=== PATIENT | female | born 1955 | race Caucasian/White ===

== ENCOUNTER → 2016-10-27 | Outpatient (CLI) | payer BC ==
[~2016-10-27] MED LIST: AMITRIPTYLINE10 MG PO; BACTROBAN OINT22 GM PO; CELEBREX200 MG PO; COUMADIN3 MG PO; CYMBALTA60 MG PO; HYDROXYCHLOROQ200 MG PO; LASIX20 MG PO; LORATADINE10 M1 PO; MACROBID100 M1 PO; METFORMIN500 MG PO; PREDNISONE10 MG PO; SINGULAIR10 MG PO; SPIRONOLACTONE25 MG PO; SYNTHROID0.125 MG PO; TRAMADOL HCL50 MG PO; VICODIN 500 MG-1 TAB PO
== END | disposition home or self-care (01) ==
LOC: LAB 19:15
DX: R19.7 Diarrhea, unspecified (principal)

== ENCOUNTER 2017-06-19 14:22 | Emergency (ER) | payer BC ==
[~2017-06-19] VITALS: Ht 157.4 cm; Wt 111.6 kg
[2017-06-19 14:47] LABS: BASO # 0.1 10*3/uL (0.0-0.1); BASO % 0.3 % (0.0-1.0); EOS # 0.2 10*3/uL (0.0-0.4); EOS % 1.4 % (1.0-4.0); HEMATOCRIT 43.4 % (37.0-47.0); HEMOGLOBIN 14.2 g/dl (12.0-16.0); LYMPH # 2.1 10*3/uL (1.3-4.4); MEAN CELL VOLUME 91.9 fl (81.0-99.0); MEAN CORPUSCULAR HGB 30.1 pg (27.0-31.0); MEAN CORPUSCULAR HGB CONC 32.7 g/dl (33.0-37.0); MEAN PLATELET VOLUME 9.6 fl (9.6-12.3); MONO # 0.9 10*3/uL (0.1-1.0); MONO % 6.2 % (3.0-9.0); NEUT # 11.3 10*3/uL (2.3-7.9); NEUT % 76.3 % (47.0-73.0); PLATELET COUNT AUTOMATED 334 10*3/uL (130-400); RED BLOOD COUNT 4.72 10*6/uL (4.10-5.10); RED CELL DISTRI WIDTH 13.6 % (0-14.5); WHITE BLOOD COUNT 14.8 10*3/uL (4.8-10.8)
[2017-06-19 14:54] LABS: INTERNATIONAL NORM RATIO 3.2 (2.0-3.5)
[2017-06-19 15:00] LABS: ALBUMIN 3.2 gm/dl (3.1-4.5); ALKALINE PHOSPHATASE 111 U/L (45-117); BUN 21 mg/dl (7-24); CHLORIDE 102 mmol/L (98-107); CREATININE 0.83 mg/dL (0.55-1.02); POTASSIUM 4.3 mmol/L (3.5-5.1); SGOT/AST 10 IU/L (3-35); SGPT/ALT 25 U/L (12-78); SODIUM 136 mmol/L (136-145); TOTAL PROTEIN 7.6 gm/dL (6.4-8.2)
[2017-06-19] MEDS ORDERED: KEFLEX500 M1 PO (15:39)
[2017-06-19 15:50] VITALS: BP 149/89
== END 2017-06-19 16:20 ==
LOC: ED 14:22
PROVIDERS: Nurse Practitioner Family
DX: S91.302A Unspecified open wound, left foot, initial encounter (principal); E11.9 Type 2 diabetes mellitus without complications; D68.51 Activated protein C resistance; Z98.890 Other specified postprocedural states; Z98.51 Tubal ligation status; Z79.899 Other long term (current) drug therapy; Z79.01 Long term (current) use of anticoagulants; Z88.2 Allergy status to sulfonamides; Z88.5 Allergy status to narcotic agent; Z88.8 Allergy status to other drugs, medicaments and biological substances; X58.XXXA Exposure to other specified factors, initial encounter; Y93.89 Activity, other specified; Y92.89 Other specified places as the place of occurrence of the external cause; Y99.9 Unspecified external cause status

== ENCOUNTER 2017-06-24 08:46 | Inpatient (IN) | payer BC ==
[~2017-06-24] VITALS: Ht 157.4 cm; Wt 111.6 kg
--- NOTE | ~2017-06-24 | CON ---
[place], [place] REPORT OF CONSULTATION NAME: MADHU JOYA UNIT #: [id number] ROOM: 405 DOCTOR: CALLUM MERRILL DPM BIRTHDATE: [birth year] DOS: 06/24/2017 SUBJECTIVE: This patient is seen today for evaluation of an ulcer on bottom of her left foot. She states she has always had a callus there and about a week or two ago she trimmed the callus off and it did start to bleed and sustained a wound. She states it was really red and swollen, so she went to the Emergency Room on June 19, was placed on Keflex and was discharged. She states over the weekend she was concerned because the redness and swelling had got a little better, but not significantly improved, so she came back to the Emergency Room and they admitted her for IV antibiotics and evaluation of the left foot. She is diabetic. 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 She denies fever, chills, nausea, vomiting or night sweats. Denies any chills at this time. PAST MEDICAL HISTORY: Positive for factor V deficiency, diabetes as well as some seasonal allergies, vitamin D deficiency, hypothyroidism. CURRENT MEDICATIONS: Include Aldactone, Singulair, Claritin, Cymbalta, Prilosec, Cytomel, Synthroid, Feosol, Elavil, Coumadin, prednisone, Humalog, Flovent, [place]. ALLERGIES: SULFA, ALLOPURINOL and CODEINE. OBJECTIVE: Upon lower extremity physical examination, DP pedal pulse is palpable. PT pedal pulse is minimally decreased. There are some chronic pigment changes noted bilaterally, consistent with venous insufficiency. The toes are warm. CFT is less than 2 seconds to all digits. Sensation is diminished in the forefoot bilaterally. The plantar left first metatarsal head has a small wound present measuring about 0.5 cm in length x about 0.1 cm in width. Upon probing with a Q-tip, there is a tract that goes down to bone. There is no purulent drainage or malodor expressed from the wound. There is some erythema localized to the first MPJ, but no increased temperature, again no expressible purulent drainage, no ascending cellulitis. The erythema is localized to the joint. IMAGING: Her x-ray showed destruction of the first metatarsal head, which appears not to be a fracture. It appears to be osseous breakdown secondary to possible infection, possibility of Charcot cannot be excluded. LABORATORY DATA: Her white blood cell count was 13,000 and her INR was 2.6. PT and PTT are elevated. She did not have any signs of a shift at this time and white blood cell count was 13,000. ASSESSMENT: Diabetes, diabetic ulcer to plantar left first metatarsal head, possible osteomyelitis, possible Charcot arthropathy of the joint. PLAN: Consult was performed. I discussed with the patient that she has an ulceration with possible infection and I discussed results of her x-rays. The patient ultimately needs that area opened up, flushed out and needs a biopsy and culture of the bone to see if it truly is osteomyelitis. This was all discussed with the patient. I will speak with Dr. Segovia about giving her vitamin K to [place], [place] REPORT OF CONSULTATION NAME: MADHU JOYA UNIT #: [id number] ROOM: 405 DOCTOR: CALLUM MERRILL DPM BIRTHDATE: [birth year] reduce her INR and PT, PTT, hopefully do the surgery tomorrow. Consult Infectious Disease. Order sed rate and C-reactive protein, just basically a local dressing to the area for now and reevaluate the patient tomorrow, possible surgery tomorrow as long as her bleeding times come down. This was all discussed with the patient. I discussed the procedure with the patient ____ needs a biopsy of that bone, needs the area flushed out and addressed. She is agreeable to this. I will speak with Dr. Segovia. Thank you for the opportunity to take part in care of this patient. CALLUM MERRILL DPM CM:CONSTR:REPORT OF CONSULTATION [id number] 06/24/17 2068 interface
--- NOTE | ~2017-06-24 | PR ---
[place], [place] PROGRESS NOTE NAME: MADHU JOYA UNIT #: [id number] ROOM: 405 DOCTOR: ADDIS SCALES DPM BIRTHDATE: [birth year] DOS: 06/27/2017 SUBJECTIVE: The patient presents 2 days postop incision and drainage with bone biopsy of the left foot. The patient is resting comfortably in bed without pain. OBJECTIVE: Upon removal of the dressing and packing, there is decreased erythema, decreased edema, mild serous drainage still noted. No definitive abscess identified. LABORATORY DATA: The patient's bone biopsy is consistent with chronic osteomyelitis. The patient still had a WBC of 14.8. ASSESSMENT: Post incision and drainage of abscess with bone biopsy and osteomyelitis, left foot. PLAN: Ordered wound VAC to be changed every 3 days, continuous at 125 mmHg. Continue antibiotics per Infectious Disease. Discussed with the patient. She needs to maintain vigilance and nonweightbearing, that she may still need further bone removed from the foot and she may require additional surgical procedures. Discussed with the patient long-term treatment options. The patient is to continue offloading of the foot as directed. The patient understood this. Discussed the case with Dr. Brown to check the patient tomorrow. ADDIS SCALES DPM CM:LEYLA [id number] ADDIS SCALES DPM 06/27/17 1631 interface
--- NOTE | ~2017-06-24 | PR ---
[place], [place] PROGRESS NOTE NAME: [id number] UNIT #: [id number] ROOM: 405 DOCTOR: CALLUM MERRILL DPM BIRTHDATE: [birth year] DOS: 06/28/2017 SUBJECTIVE: This patient is seen for followup of I and D, bone biopsy of left foot. She has osteomyelitis noted in the left foot. She states she is feeling well. Denies fever, chills, nausea, vomiting or night sweats. She is postop day 3 at this time. She does have a PICC line. OBJECTIVE: ____ the wound VAC. The plantar wound is clean. There is still some mild edema about the left first MPJ, but no erythema or increased temperature. No purulent drainage or malodor. Still a fairly deep deficit, plantar left foot. The bone is palpable. No abscess is seen. Again significant reduction in erythema at this time. ASSESSMENT: Chronic osteomyelitis of left foot, status post incision and drainage, bone biopsy. PLAN: Recommend packing and a dressing to the area. She is going to be discharged today. She will follow up tomorrow with Dr. Lopez in the office. They are in the process of getting her a new wound VAC as an outpatient. Limit weightbearing, IV antibiotics per Infectious Disease and follow up tomorrow in the office to be evaluated. CALLUM MERRILL DPM CM:PNTRANS [id number] CALLUM MERRILL DPM 06/28/17 1348 interface
--- NOTE | ~2017-06-24 | O ---
[place], [place] OPERATIVE NOTE NAME: MADHU JOYA UNIT #: [id number] ROOM: 405 DOCTOR: ADDIS SCALES DPM BIRTHDATE: [birth year] DOS: 06/25/2017 PREOPERATIVE DIAGNOSIS: Abscess, first left metatarsophalangeal joint with possible osteomyelitis. POSTOPERATIVE DIAGNOSIS: Abscess, first left metatarsophalangeal joint with possible osteomyelitis, pending pathology. PROCEDURE: Incision and drainage, left foot with bone biopsy, first left metatarsal. ESTIMATED BLOOD LOSS: 15 mL. SPECIMEN: Bone, first left metatarsal . PACKING: Half-inch plain packing. GASOLINE ATTENDANT: None. SURGEON: Addis Scales DPM ANESTHESIA: LMAC. PROCEDURE IN DETAIL: The patient was brought to the operating room and placed on the operating table in supine position, anesthesia administered per Anesthesia Department. A local block consisting of 10 mL of 0.5% Marcaine plain was utilized at the first left MPJ. The area was prepped and draped in usual aseptic manner. An ulceration with fluctuance and purulent drainage was noted to the plantar first left MPJ. The ulceration was probed with a [place] elevator was noted to track proximally. A 15 blade was utilized to open the tract through and through subcutaneous tissue level down to the level of the first metatarsal approximately 6 cm proximal. The incision was lengthened and additional tracking distally approximately 1 cm. All necrotic nonviable tissue was excised. Purulent drainage noted. Wound was cultured and sent for aerobic, anaerobic, acid fast, fungal cultures along with Gram stain. At this time, a Jamshidi was utilized to obtain samples of bone of the first left metatarsal head. Bone samples were also sent for cultures and separately for pathology to rule out osteomyelitis. The area was copiously flushed with pulse power irrigation with sterile saline and at this time, the area was packed with half-inch plain packing and a sterile compressed dressing consisting of wet-to-dry dressing with 4 x 4's, ABD pads, Kerlix and Stanley bandage. Capillary refill time was normal to all digits of the left foot after completion of the procedure. The patient tolerated the procedures and anesthesia well and left the OR with vital signs stable and neurovascular status intact. The patient will resume previous orders at the nursing unit, hold anticoagulant therapy until at least tomorrow and resume per Internal Medicine orders for elevation of the left foot with ice behind the left knee 30 minutes per hour, orders for crutches and surgical shoe and PT consult for crutch training when the patient is able to reinforce dressing as needed and the patient will be seen tomorrow for followup with Dr. Drake, for possible wound VAC placement. [place], [place] OPERATIVE NOTE NAME: MADHU JOYA UNIT #: [id number] ROOM: 405 DOCTOR: ADDIS SCALES DPM BIRTHDATE: [birth year] ADDIS SCALES DPM CM:OPRECORD:OPERATIVE NOTE 1215 01 ADDIS SCALES DPM 06/25/172200 interface
[~2017-06-24 08:46] MED LIST changes: -CO Q10100 MG PO; -COUMADIN2 MG PO; -FLONASE ALLERG9.9 ML NAS; -IRON325 M1 PO; -LIOTHYRONINE SO5 MCG PO; -PREDNISONE5 MG PO; -PRILOSEC20 M1 PO; -QVAR8.7 G1 INH; -VITAMIN D32000 UNIT PO
[2017-06-24 08:56] VITALS: BP 177/81
[2017-06-24 09:31] LABS: BASO # 0.1 10*3/uL (0.0-0.1); BASO % 0.5 % (0.0-1.0); EOS # 0.2 10*3/uL (0.0-0.4); EOS % 1.8 % (1.0-4.0); HEMATOCRIT 41.6 % (37.0-47.0); HEMOGLOBIN 13.5 g/dl (12.0-16.0); LYMPH # 2.2 10*3/uL (1.3-4.4); LYMPH % 16.7 % (27.0-41.0); MEAN CELL VOLUME 92.9 fl (81.0-99.0); MEAN CORPUSCULAR HGB 30.1 pg (27.0-31.0); MEAN CORPUSCULAR HGB CONC 32.5 g/dl (33.0-37.0); MONO # 0.9 10*3/uL (0.1-1.0); MONO % 6.9 % (3.0-9.0); NEUT # 9.4 10*3/uL (2.3-7.9); NEUT % 72.6 % (47.0-73.0); PLATELET COUNT AUTOMATED 290 10*3/uL (130-400); RED BLOOD COUNT 4.48 10*6/uL (4.10-5.10); RED CELL DISTRI WIDTH 13.7 % (0-14.5)
[2017-06-24 09:40] LABS: ACT PARTIAL THROMBO TIME 34.8 SECONDS (20.8-31.5); INTERNATIONAL NORM RATIO 2.6 (2.0-3.5)
[2017-06-24 09:46] LABS: ALBUMIN 2.9 gm/dl (3.1-4.5); ALKALINE PHOSPHATASE 99 U/L (45-117); BUN 13 mg/dl (7-24); CHLORIDE 103 mmol/L (98-107); CREATININE 0.78 mg/dL (0.55-1.02); POTASSIUM 3.7 mmol/L (3.5-5.1); SGOT/AST 11 IU/L (3-35); SGPT/ALT 26 U/L (12-78); SODIUM 139 mmol/L (136-145); TOTAL PROTEIN 7.1 gm/dL (6.4-8.2)
[2017-06-24 09:56] VITALS: BP 164/65
[2017-06-24] MEDS ORDERED: LIOTHYRONINE SO5 MCG PO (10:18)
[2017-06-24] MEDS ORDERED: PRILOSEC20 M1 PO (10:21)
[2017-06-24] MEDS ORDERED: IRON325 M1 PO (10:21)
[2017-06-24] MEDS ORDERED: CO Q10100 MG PO (10:22)
[2017-06-24] MEDS ORDERED: VITAMIN D32000 UNIT PO (10:22)
[2017-06-24] MEDS ORDERED: PREDNISONE5 MG PO (10:23)
[2017-06-24] MEDS ORDERED: COUMADIN2 MG PO (10:25)
[2017-06-24 10:27] VITALS: BP 160/75
[2017-06-24] MEDS ORDERED: QVAR8.7 G1 INH (10:41)
[2017-06-24] MEDS ORDERED: FLONASE ALLERG9.9 ML NAS (10:42)
[2017-06-24 12:00] VITALS: BP 150/78
[2017-06-24 16:00] VITALS: BP 139/70
[2017-06-24 20:00] VITALS: BP 143/77
[2017-06-25] VITALS (8 sets, daily range): BP systolic 128–176; BP diastolic 48–76
[2017-06-25 07:04] LABS: BASO % 0.3 % (0.0-1.0); EOS # 0.1 10*3/uL (0.0-0.4); EOS % 0.5 % (1.0-4.0); HEMATOCRIT 41.8 % (37.0-47.0); HEMOGLOBIN 13.6 g/dl (12.0-16.0); LYMPH # 2.5 10*3/uL (1.3-4.4); LYMPH % 20.3 % (27.0-41.0); MEAN CELL VOLUME 92.3 fl (81.0-99.0); MEAN CORPUSCULAR HGB CONC 32.5 g/dl (33.0-37.0); MEAN PLATELET VOLUME 10.2 fl (9.6-12.3); MONO # 0.9 10*3/uL (0.1-1.0); MONO % 7.4 % (3.0-9.0); NEUT # 8.5 10*3/uL (2.3-7.9); NEUT % 69.7 % (47.0-73.0); PLATELET COUNT AUTOMATED 326 10*3/uL (130-400); RED BLOOD COUNT 4.53 10*6/uL (4.10-5.10); RED CELL DISTRI WIDTH 13.6 % (0-14.5); WHITE BLOOD COUNT 12.2 10*3/uL (4.8-10.8)
[2017-06-25 07:34] LABS: BUN 16 mg/dl (7-24); CHLORIDE 102 mmol/L (98-107); CHOLESTEROL 197 mg/dL (<200); CREATININE 0.75 mg/dL (0.55-1.02); HDL CHOLESTEROL 54 mg/dl (40-60); LDL CHOLESTEROL 117 mg/dL (9-159); PHOSPHOROUS 3.2 mg/dL (2.5-4.9); POTASSIUM 3.8 mmol/L (3.5-5.1); SODIUM 140 mmol/L (136-145); TRIGLYCERIDES 130 mg/dl (<150); VLDL CHOLESTEROL 26 mg/dL (6-40)
[2017-06-25 07:38] LABS: ACT PARTIAL THROMBO TIME 26.2 SECONDS (20.8-31.5); INTERNATIONAL NORM RATIO 1.5 (2.0-3.5)
[2017-06-25 07:41] LABS: THYROID STIM HORMONE (HS) 0.059 uIU/ml (0.358-4.75)
[2017-06-25 08:06] LABS: VITAMIN D, 25-HYDROXY 54.8 ng/mL (30-100)
[2017-06-26] VITALS: BP 127/59
[2017-06-26 05:56] LABS: BUN 17 mg/dl (7-24); CHLORIDE 106 mmol/L (98-107); CREATININE 0.75 mg/dL (0.55-1.02); SODIUM 141 mmol/L (136-145)
[2017-06-26 06:29] LABS: INTERNATIONAL NORM RATIO 1.1 (2.0-3.5)
[2017-06-26 06:48] LABS: BASO # 0.1 10*3/uL (0.0-0.1); BASO % 0.4 % (0.0-1.0); EOS # 0.2 10*3/uL (0.0-0.4); EOS % 1.8 % (1.0-4.0); HEMOGLOBIN 12.9 g/dl (12.0-16.0); MEAN CELL VOLUME 95.1 fl (81.0-99.0); MEAN CORPUSCULAR HGB 29.9 pg (27.0-31.0); MEAN CORPUSCULAR HGB CONC 31.5 g/dl (33.0-37.0); MEAN PLATELET VOLUME 10.2 fl (9.6-12.3); MONO # 0.9 10*3/uL (0.1-1.0); MONO % 7.3 % (3.0-9.0); NEUT # 8.6 10*3/uL (2.3-7.9); NEUT % 71.8 % (47.0-73.0); PLATELET COUNT AUTOMATED 296 10*3/uL (130-400); RED BLOOD COUNT 4.31 10*6/uL (4.10-5.10); RED CELL DISTRI WIDTH 13.8 % (0-14.5)
[2017-06-26 08:00] VITALS: BP 155/71; BP 174/87
[2017-06-26 16:00] VITALS: BP 134/61
[2017-06-26 16:09] LABS: ACID FAST SPEC PROCESSING Tissue Grinding (.)
[2017-06-26 20:00] VITALS: BP 146/71
[2017-06-27 00:02] VITALS: BP 153/70
[2017-06-27 05:56] LABS: BUN 16 mg/dl (7-24); CHLORIDE 103 mmol/L (98-107); CREATININE 0.64 mg/dL (0.55-1.02); POTASSIUM 3.6 mmol/L (3.5-5.1); SODIUM 140 mmol/L (136-145)
[2017-06-27 05:58] LABS: VANCOMYCIN TROUGH 11.2 ug/mL (10-20)
[2017-06-27 06:02] LABS: BASO # 0.1 10*3/uL (0.0-0.1); BASO % 0.3 % (0.0-1.0); EOS # 0.1 10*3/uL (0.0-0.4); EOS % 0.7 % (1.0-4.0); HEMATOCRIT 40.1 % (37.0-47.0); HEMOGLOBIN 13.1 g/dl (12.0-16.0); LYMPH # 2.6 10*3/uL (1.3-4.4); LYMPH % 17.7 % (27.0-41.0); MEAN CELL VOLUME 92.6 fl (81.0-99.0); MEAN CORPUSCULAR HGB 30.3 pg (27.0-31.0); MEAN CORPUSCULAR HGB CONC 32.7 g/dl (33.0-37.0); MONO # 1.1 10*3/uL (0.1-1.0); MONO % 7.6 % (3.0-9.0); NEUT # 10.6 10*3/uL (2.3-7.9); NEUT % 71.8 % (47.0-73.0); PLATELET COUNT AUTOMATED 308 10*3/uL (130-400); RED BLOOD COUNT 4.33 10*6/uL (4.10-5.10); RED CELL DISTRI WIDTH 13.6 % (0-14.5); WHITE BLOOD COUNT 14.8 10*3/uL (4.8-10.8)
[2017-06-27 08:00] VITALS: BP 131/65
[2017-06-27 12:00] VITALS: BP 159/77
[2017-06-27 16:00] VITALS: BP 138/56
[2017-06-27 20:00] VITALS: BP 145/68
[2017-06-28] VITALS: BP 128/55
[2017-06-28 06:56] LABS: BASO # 0.1 10*3/uL (0.0-0.1); BASO % 0.3 % (0.0-1.0); EOS # 0.1 10*3/uL (0.0-0.4); EOS % 0.6 % (1.0-4.0); HEMATOCRIT 41.1 % (37.0-47.0); HEMOGLOBIN 13.1 g/dl (12.0-16.0); LYMPH # 2.9 10*3/uL (1.3-4.4); LYMPH % 19.4 % (27.0-41.0); MEAN CELL VOLUME 92.8 fl (81.0-99.0); MEAN CORPUSCULAR HGB 29.6 pg (27.0-31.0); MEAN CORPUSCULAR HGB CONC 31.9 g/dl (33.0-37.0); MEAN PLATELET VOLUME 9.9 fl (9.6-12.3); MONO # 1.2 10*3/uL (0.1-1.0); NEUT # 10.2 10*3/uL (2.3-7.9); NEUT % 69.7 % (47.0-73.0); PLATELET COUNT AUTOMATED 269 10*3/uL (130-400); RED BLOOD COUNT 4.43 10*6/uL (4.10-5.10); RED CELL DISTRI WIDTH 13.6 % (0-14.5); WHITE BLOOD COUNT 14.7 10*3/uL (4.8-10.8)
[2017-06-28 07:32] LABS: BUN 17 mg/dl (7-24); CHLORIDE 103 mmol/L (98-107); CREATININE 0.61 mg/dL (0.55-1.02); POTASSIUM 3.4 mmol/L (3.5-5.1); SODIUM 141 mmol/L (136-145)
[2017-06-28 07:41] LABS: INTERNATIONAL NORM RATIO 1.1 (2.0-3.5)
[2017-06-28 08:00] VITALS: BP 130/51
[2017-06-28 12:00] VITALS: BP 131/63
== END 2017-06-28 11:34 | disposition home or self-care (01) | DRG 629 ==
LOC: ED 08:46 → EDHOLD 09:05 → 4E 09:05
PROVIDERS: Emergency Medicine; Family Medicine; Internal Medicine; Podiatrist
PROC: 0QBP0ZX Excision of Left Metatarsal, Open Approach, Diagnostic (ICD-10-PCS; principal; 2017-06-25)
PROC: 0J9R0ZZ Drainage of Left Foot Subcutaneous Tissue and Fascia, Open Approach (ICD-10-PCS; principal; 2017-06-25)
PROC: 02HV33Z Insertion of Infusion Device into Superior Vena Cava, Percutaneous Approach (ICD-10-PCS; 2017-06-26)
DX: E11.69 Type 2 diabetes mellitus with other specified complication (principal); M86.672 Other chronic osteomyelitis, left ankle and foot; D68.59 Other primary thrombophilia; E11.42 Type 2 diabetes mellitus with diabetic polyneuropathy; E11.621 Type 2 diabetes mellitus with foot ulcer; E44.0 Moderate protein-calorie malnutrition; D68.2 Hereditary deficiency of other clotting factors; E11.65 Type 2 diabetes mellitus with hyperglycemia; L02.612 Cutaneous abscess of left foot; Z68.42 Body mass index [BMI] 45.0-49.9, adult; E66.01 Morbid (severe) obesity due to excess calories; E03.9 Hypothyroidism, unspecified; I10 Essential (primary) hypertension; E55.9 Vitamin D deficiency, unspecified; E61.1 Iron deficiency; J30.2 Other seasonal allergic rhinitis; T38.0X5A Adverse effect of glucocorticoids and synthetic analogues, initial encounter; S92.312A Displaced fracture of first metatarsal bone, left foot, initial encounter for closed fracture; X58.XXXA Exposure to other specified factors, initial encounter; K21.9 Gastro-esophageal reflux disease without esophagitis; M35.3 Polymyalgia rheumatica; K58.9 Irritable bowel syndrome, unspecified; M31.6 Other giant cell arteritis; Z88.2 Allergy status to sulfonamides; Z88.5 Allergy status to narcotic agent; Z88.8 Allergy status to other drugs, medicaments and biological substances; Z79.01 Long term (current) use of anticoagulants; Z79.899 Other long term (current) drug therapy; Z98.51 Tubal ligation status; Z98.891 History of uterine scar from previous surgery; Z79.84 Long term (current) use of oral hypoglycemic drugs; Z83.6 Family history of other diseases of the respiratory system; Y92.89 Other specified places as the place of occurrence of the external cause; Y93.89 Activity, other specified; Y99.8 Other external cause status

== ENCOUNTER → 2017-06-24 | Outpatient (CLI) | payer BC ==
[~2017-06-24] MED LIST changes: -AMITRIPTYLINE10 MG PO; +AMITRIPTYLINE25 MG PO; +CO Q10100 MG PO; +COUMADIN2 MG PO; -COUMADIN3 MG PO; +COUMADIN4 M2 PO; +FLONASE ALLERG9.9 ML NAS; +IRON325 M1 PO; +KEFLEX500 M1 PO; +LIOTHYRONINE SO5 MCG PO; +PREDNISONE5 MG PO; +PRILOSEC20 M1 PO; +QVAR8.7 G1 INH; +SINGULAIR10 M1 PO; -SINGULAIR10 MG PO; +SYNTHROID,LEV175 MCG PO; -SYNTHROID0.125 MG PO; +VITAMIN D32000 UNIT PO
== END | disposition home or self-care (01) ==
LOC: WOUNDCARE 02:52
DX: E11.621 Type 2 diabetes mellitus with foot ulcer (principal); L97.526 Non-pressure chronic ulcer of other part of left foot with bone involvement without evidence of necrosis; E03.9 Hypothyroidism, unspecified; F32.9 Major depressive disorder, single episode, unspecified; Z86.718 Personal history of other venous thrombosis and embolism; Z79.01 Long term (current) use of anticoagulants

== ENCOUNTER 2021-06-18 09:03 | Inpatient (IN) | payer MEDICARE ==
[~2021-06-18] VITALS: Ht 157.4 cm; Wt 117.1 kg
[~2021-06-18 09:03] MED LIST changes: +CO Q10100 MG PO; +COUMADIN2 MG PO; +FLONASE ALLERG9.9 ML NAS; +IRON325 M1 PO; +LIOTHYRONINE SO5 MCG PO; +PREDNISONE5 MG PO; +PRILOSEC20 M1 PO; +QVAR8.7 G1 INH; +VITAMIN D32000 UNIT PO
[2021-06-18 09:09] VITALS: BP 176/109
[2021-06-18 09:40] LABS: HEMATOCRIT 42.4 % (37.0-47.0); MEAN CELL VOLUME 83.8 fl (81.0-99.0); MEAN CORPUSCULAR HGB 27.5 pg (27.0-31.0); MEAN CORPUSCULAR HGB CONC 32.8 g/dl (33.0-37.0); MEAN PLATELET VOLUME 10.4 fl (9.6-12.3); PLATELET COUNT AUTOMATED 231 10*3/uL (130-400); RED BLOOD COUNT 5.06 10*6/uL (4.10-5.10); RED CELL DISTRI WIDTH 15.6 % (0-14.5); WHITE BLOOD COUNT 24.4 10*3/uL (4.8-10.8)
[2021-06-18 09:42] LABS: MANUAL DIFF REFLEX YES
[2021-06-18 09:51] LABS: ACT PARTIAL THROMBO TIME 52.1 SECONDS (20.0-32.1); INTERNATIONAL NORM RATIO 2.4 (2.0-3.5)
[2021-06-18 09:57] LABS: CREATININE 1.75 mg/dL (0.55-1.02); POTASSIUM 4.5 mmol/L (3.5-5.1); TOTAL PROTEIN 7.7 gm/dL (6.4-8.2)
[2021-06-18 10:07] LABS: ATYPICAL LYMPHS 1 % (0-0); TOTAL CELLS COUNTED 100 #CELLS
[2021-06-18 10:08] LABS: BURR CELLS FEW; PLATELET SUFFICIENCY NORMAL (NORMAL); SCHISTOCYTES FEW; VACUOLATION OF NEUTROPHILS SLIGHT
[2021-06-18 11:22] LABS: BILIRUBIN Negative (Negative); BLOOD 1+ (Negative); CLARITY Clear (Clear); COLOR Yellow (Yellow); GLUCOSE 1+ (Negative); KETONE 1+ (Negative); LEUKO ESTERASE Negative (Negative); NITRITE Negative (Negative)
[2021-06-18 11:43] LABS: BACTERIA 1+; MUCOUS TRACE; RBC 21-30 rbc/hpf (0-2)
[2021-06-18 12:00] VITALS: BP 159/74
[2021-06-18 12:16] VITALS: BP 136/66
[2021-06-18] MEDS ORDERED: CELECOXIB200 M1 PO (14:20)
[2021-06-18] MEDS ORDERED: ULTRAM50 MG PO (14:21)
[2021-06-18] MEDS ORDERED: BACLOFEN5 MG PO (14:23)
[2021-06-18] MEDS ORDERED: BUMETANIDE0.5 MG PO (14:23)
[2021-06-18] MEDS ORDERED: FEXOFENADINE H180 M1 PO (14:24)
[2021-06-18] MEDS ORDERED: LIOTHYRONINE SO5 MCG PO (14:24)
[2021-06-18 14:25] VITALS: BP 145/78
[2021-06-18] MEDS ORDERED: AMITRIPTYLINE25 MG PO (14:25)
[2021-06-18] MEDS ORDERED: AMLODIPINE BESYL5 MG PO (14:26)
[2021-06-18] MEDS ORDERED: ALDACTONE25 MG PO (14:27)
[2021-06-18] MEDS ORDERED: LANSOPRAZOLE30 MG PO (14:28)
[2021-06-18] MEDS ORDERED: WARFARIN SODIUM3 MG PO (14:29)
[2021-06-18 15:00] VITALS: BP 121/79
[2021-06-18] MEDS ORDERED: CYMBALTA20 M1 PO (15:11)
[2021-06-18] MEDS ORDERED: JANTOVEN1 MG PO (15:18)
[2021-06-18] MEDS ORDERED: VITAMIN D350 MC2 PO (15:19)
[2021-06-18] MEDS ORDERED: SUPER B COMPLE1 EAC1 PO (15:20)
[2021-06-18] MEDS ORDERED: VOLTAREN ARTHRI20 GM T (15:21)
[2021-06-18] MEDS ORDERED: NOVOLIN N100 UNIT/1 SQ (15:34)
[2021-06-18 20:00] VITALS: BP 148/66
[2021-06-19] VITALS: BP 117/75
[2021-06-19 06:30] LABS: CREATININE 1.27 mg/dL (0.55-1.02); FREE T4 1.44 ng/dl (0.76-1.46); POTASSIUM 4.1 mmol/L (3.5-5.1); TOTAL PROTEIN 6.7 gm/dL (6.4-8.2)
[2021-06-19 06:32] LABS: HEMATOCRIT 37.8 % (37.0-47.0); MEAN CELL VOLUME 85.7 fl (81.0-99.0); MEAN CORPUSCULAR HGB 27.4 pg (27.0-31.0); MEAN PLATELET VOLUME 11.3 fl (9.6-12.3); PLATELET COUNT AUTOMATED 171 10*3/uL (130-400); RED BLOOD COUNT 4.41 10*6/uL (4.10-5.10); RED CELL DISTRI WIDTH 15.7 % (0-14.5); WHITE BLOOD COUNT 17.3 10*3/uL (4.8-10.8)
[2021-06-19 06:34] LABS: MANUAL DIFF REFLEX YES
[2021-06-19 06:35] LABS: THYROID STIM HORMONE (HS) 0.441 uIU/ml (0.358-4.75)
[2021-06-19 07:14] LABS: BASOPHILS 1 % (0-1); TOTAL CELLS COUNTED 100 #CELLS
[2021-06-19 07:15] LABS: BURR CELLS MODERATE; PLATELET SUFFICIENCY NORMAL (NORMAL); TOXIC GRANULATION SLIGHT
[2021-06-19 08:00] VITALS: BP 143/63
[2021-06-19 16:00] VITALS: BP 140/67
[2021-06-19 20:00] VITALS: BP 113/72
[2021-06-20] VITALS: BP 112/73
[2021-06-20 06:11] LABS: BASO % 0.3 % (0.0-1.0); EOS # 0.3 10*3/uL (0.0-0.4); EOS % 2.1 % (1.0-4.0); HEMATOCRIT 36.6 % (37.0-47.0); LYMPH % 7.4 % (27.0-41.0); MEAN CELL VOLUME 85.3 fl (81.0-99.0); MEAN CORPUSCULAR HGB 27.5 pg (27.0-31.0); MEAN CORPUSCULAR HGB CONC 32.2 g/dl (33.0-37.0); MEAN PLATELET VOLUME 11.8 fl (9.6-12.3); MONO # 1.1 10*3/uL (0.1-1.0); MONO % 7.7 % (3.0-9.0); NEUT # 11.3 10*3/uL (2.3-7.9); NEUT % 80.8 % (47.0-73.0); PLATELET COUNT AUTOMATED 185 10*3/uL (130-400); RED BLOOD COUNT 4.29 10*6/uL (4.10-5.10)
[2021-06-20 06:19] LABS: CREATININE 1.28 mg/dL (0.55-1.02); POTASSIUM 3.8 mmol/L (3.5-5.1)
[2021-06-20 06:29] LABS: INTERNATIONAL NORM RATIO 2.2 (2.0-3.5)
[2021-06-20 08:00] VITALS: BP 138/73
[2021-06-20 12:00] VITALS: BP 134/66
[2021-06-20 16:00] VITALS: BP 129/75
[2021-06-20 20:00] VITALS: BP 137/63
[2021-06-21] VITALS: BP 115/69
[2021-06-21 06:32] LABS: HEMATOCRIT 36.9 % (37.0-47.0); MEAN CELL VOLUME 85.4 fl (81.0-99.0); MEAN CORPUSCULAR HGB 27.5 pg (27.0-31.0); MEAN CORPUSCULAR HGB CONC 32.2 g/dl (33.0-37.0); MEAN PLATELET VOLUME 11.7 fl (9.6-12.3); PLATELET COUNT AUTOMATED 223 10*3/uL (130-400); RED BLOOD COUNT 4.32 10*6/uL (4.10-5.10); RED CELL DISTRI WIDTH 16.1 % (0-14.5); WHITE BLOOD COUNT 14.2 10*3/uL (4.8-10.8)
[2021-06-21 06:39] LABS: MANUAL DIFF REFLEX YES
[2021-06-21 06:42] LABS: INTERNATIONAL NORM RATIO 2.9 (2.0-3.5)
[2021-06-21 06:59] LABS: CREATININE 1.17 mg/dL (0.55-1.02)
[2021-06-21 07:15] LABS: BURR CELLS FEW; PLATELET SUFFICIENCY NORMAL (NORMAL); POLYCHROMASIA SLIGHT; SCHISTOCYTES FEW; TOTAL CELLS COUNTED 100 #CELLS
[2021-06-21 08:00] VITALS: BP 154/90
[2021-06-21 12:00] VITALS: BP 129/77
[2021-06-21 16:00] VITALS: BP 125/74
[2021-06-21 20:00] VITALS: BP 132/69
[2021-06-22] VITALS: BP 112/60
[2021-06-22 06:26] LABS: BUN 26 mg/dl (7-24); CHLORIDE 105 mmol/L (98-107); POTASSIUM 4.5 mmol/L (3.5-5.1); SODIUM 135 mmol/L (136-145)
[2021-06-22 06:30] LABS: CREATININE 1.05 mg/dL (0.55-1.02)
[2021-06-22 06:34] LABS: INTERNATIONAL NORM RATIO 4.2 (2.0-3.5)
[2021-06-22 06:59] LABS: HEMATOCRIT 38.3 % (37.0-47.0); MEAN CELL VOLUME 84.4 fl (81.0-99.0); MEAN CORPUSCULAR HGB 27.3 pg (27.0-31.0); MEAN CORPUSCULAR HGB CONC 32.4 g/dl (33.0-37.0); RED BLOOD COUNT 4.54 10*6/uL (4.10-5.10); RED CELL DISTRI WIDTH 16.3 % (0-14.5); WHITE BLOOD COUNT 15.7 10*3/uL (4.8-10.8)
[2021-06-22 07:08] LABS: MANUAL DIFF REFLEX YES; PLATELET COUNT AUTOMATED 302 10*3/uL (130-400)
[2021-06-22 07:11] LABS: BASOPHILS 2 % (0-1); BURR CELLS FEW; PLATELET SUFFICIENCY NORMAL (NORMAL); ROULEAUX SLIGHT; TOTAL CELLS COUNTED 100 #CELLS
[2021-06-22 08:00] VITALS: BP 119/62
[2021-06-22 12:00] VITALS: BP 137/70
[2021-06-22] MEDS ORDERED: CEFTRIAXON2 GM/50 ML IV (12:18)
[2021-06-22] MEDS ORDERED: METOPROLOL SUCC25 M2 PO (12:18)
[2021-06-22] MEDS ORDERED: ULTRAM50 MG PO (12:18)
[2021-06-22] MEDS ORDERED: Percocet 325 MG1 TAB PO (12:18)
== END 2021-06-22 17:20 | DRG 871 ==
LOC: ED 09:03 → EDHOLD 11:37 → 5E 13:28
PROVIDERS: Emergency Medicine; Family Medicine; Internal Medicine; ADMIT Internal Medicine; ATTEND Internal Medicine
PROC: 05HB33Z Insertion of Infusion Device into Right Basilic Vein, Percutaneous Approach (ICD-10-PCS; principal; 2021-06-19)
PROC: B54MZZA Ultrasonography of Right Upper Extremity Veins, Guidance (ICD-10-PCS; 2021-06-19)
DX: A41.9 Sepsis, unspecified organism (principal); N17.0 Acute kidney failure with tubular necrosis; L03.115 Cellulitis of right lower limb; E87.2 Acidosis; E87.1 Hypo-osmolality and hyponatremia; E44.0 Moderate protein-calorie malnutrition; D68.9 Coagulation defect, unspecified; D68.2 Hereditary deficiency of other clotting factors; Z68.42 Body mass index [BMI] 45.0-49.9, adult; Z20.822 Contact with and (suspected) exposure to COVID-19; I87.2 Venous insufficiency (chronic) (peripheral); E86.0 Dehydration; R65.20 Severe sepsis without septic shock; R23.8 Other skin changes; K76.0 Fatty (change of) liver, not elsewhere classified; E03.9 Hypothyroidism, unspecified; I10 Essential (primary) hypertension; E11.65 Type 2 diabetes mellitus with hyperglycemia; K21.9 Gastro-esophageal reflux disease without esophagitis; I48.91 Unspecified atrial fibrillation; M35.3 Polymyalgia rheumatica; M19.90 Unspecified osteoarthritis, unspecified site; J30.2 Other seasonal allergic rhinitis; E66.01 Morbid (severe) obesity due to excess calories; E55.9 Vitamin D deficiency, unspecified; M31.6 Other giant cell arteritis; K58.9 Irritable bowel syndrome, unspecified; Z88.2 Allergy status to sulfonamides; Z88.5 Allergy status to narcotic agent; Z88.8 Allergy status to other drugs, medicaments and biological substances; Z98.891 History of uterine scar from previous surgery; Z98.51 Tubal ligation status; Z79.899 Other long term (current) drug therapy; Z79.4 Long term (current) use of insulin

== ENCOUNTER → 2021-07-28 | Outpatient (CLI) | payer MEDICARE ==
[~2021-07-28] MED LIST changes: +ALDACTONE25 MG PO; +AMLODIPINE BESYL5 MG PO; +BACLOFEN5 MG PO; +BUMETANIDE0.5 MG PO; +CEFTRIAXON2 GM/50 ML IV; +CELECOXIB200 M1 PO; +CYMBALTA20 M1 PO; +FEXOFENADINE H180 M1 PO; +JANTOVEN1 MG PO; +LANSOPRAZOLE30 MG PO; +METOPROLOL SUCC25 M2 PO; +NOVOLIN N100 UNIT/1 SQ; +Percocet 325 MG1 TAB PO; +SUPER B COMPLE1 EAC1 PO; +ULTRAM50 MG PO; +VITAMIN D350 MC2 PO; +VOLTAREN ARTHRI20 GM T; +WARFARIN SODIUM3 MG PO
[2021-07-28 14:15] LABS: BASO % 0.5 % (0.0-1.0); EOS # 0.5 10*3/uL (0.0-0.4); EOS % 5.9 % (1.0-4.0); HEMATOCRIT 37.2 % (37.0-47.0); LYMPH # 1.7 10*3/uL (1.3-4.4); LYMPH % 19.9 % (27.0-41.0); MEAN CELL VOLUME 81.8 fl (81.0-99.0); MEAN CORPUSCULAR HGB 24.8 pg (27.0-31.0); MEAN CORPUSCULAR HGB CONC 30.4 g/dl (33.0-37.0); MEAN PLATELET VOLUME 9.5 fl (9.6-12.3); MONO # 0.6 10*3/uL (0.1-1.0); MONO % 6.7 % (3.0-9.0); NEUT # 5.7 10*3/uL (2.3-7.9); NEUT % 66.6 % (47.0-73.0); PLATELET COUNT AUTOMATED 382 10*3/uL (130-400); RED BLOOD COUNT 4.55 10*6/uL (4.10-5.10); WHITE BLOOD COUNT 8.5 10*3/uL (4.8-10.8)
[2021-07-29 08:07] LABS: HBSAG Negative (Negative); HEP B CORE AB, IGM Negative (Negative); HEPATITIS C ANTIBODY 0.2 (0.0-0.9)
[2021-07-29 09:06] LABS: RHEUMATOID FACTOR <10.0 IU/mL (<14.0)
[2021-07-31 13:06] LABS: ANTI-RNP ANTIBODIES 0.5 AI (0.0-0.9)
[2021-07-31 16:07] LABS: DVVTMIXRFX CHG (NP); HEXAGONAL PHASE PHOSPHOLIPID 2 sec (0-11); LUPUS DRVVT 110.7 sec (0.0-47.0); LUPUS REFLEX INTERPRETATION Comment: (.); PTT-LA 108.8 sec (0.0-51.9)
[2021-08-01 01:06] LABS: CCP ANTIBODIES IGG/IGA 4 units (0-19)
[2021-08-04 12:07] LABS: HLA-B27 ANTIGEN Negative (.)
== END | disposition home or self-care (01) ==
LOC: LAB 13:47
PROVIDERS: ATTEND Orthopaedic Surgery
DX: I10 Essential (primary) hypertension (principal); R53.83 Other fatigue; M25.562 Pain in left knee; M25.561 Pain in right knee

== ENCOUNTER → 2021-09-15 | Outpatient (CLI) | payer MEDICARE ==
[2021-09-15 14:31] LABS: BASO % 0.5 % (0.0-1.0); EOS # 0.5 10*3/uL (0.0-0.4); EOS % 6.4 % (1.0-4.0); HEMATOCRIT 37.1 % (37.0-47.0); LYMPH # 1.9 10*3/uL (1.3-4.4); LYMPH % 22.2 % (27.0-41.0); MEAN CELL VOLUME 81.7 fl (81.0-99.0); MEAN CORPUSCULAR HGB 25.3 pg (27.0-31.0); MEAN PLATELET VOLUME 9.5 fl (9.6-12.3); MONO # 0.7 10*3/uL (0.1-1.0); MONO % 8.7 % (3.0-9.0); NEUT # 5.3 10*3/uL (2.3-7.9); NEUT % 62.1 % (47.0-73.0); PLATELET COUNT AUTOMATED 298 10*3/uL (130-400); RED BLOOD COUNT 4.54 10*6/uL (4.10-5.10); RED CELL DISTRI WIDTH 18.7 % (0-14.5); WHITE BLOOD COUNT 8.5 10*3/uL (4.8-10.8)
== END | disposition home or self-care (01) ==
LOC: LAB 14:12
PROVIDERS: ATTEND Orthopaedic Surgery
DX: R79.82 Elevated C-reactive protein (CRP) (principal)

== ENCOUNTER → 2022-05-16 | Outpatient (CLI) | payer MEDICARE | END | disposition home or self-care (01) | LOC: CT 05-15 08:00 | PROVIDERS: ATTEND Internal Medicine Gastroenterology | DX: K57.90 Diverticulosis of intestine, part unspecified, without perforation or abscess without bleeding (principal); M51.36 Other intervertebral disc degeneration, lumbar region ==

== ENCOUNTER → 2022-05-25 | Outpatient (CLI) | payer MEDICARE ==
[2022-05-25 11:21] LABS: BILIRUBIN Negative (Negative); BLOOD Negative (Negative); CLARITY Clear (Clear); COLOR Yellow (Yellow); GLUCOSE Negative (Negative); KETONE Negative (Negative); LEUKO ESTERASE Negative (Negative); NITRITE Negative (Negative); PH 6.5 (4.5-8.0); SPECIFIC GRAVITY 1.015 (1.001-1.030); UROBILINOGEN 0.2 E.U./dl (0.0-1.0)
[2022-05-26 02:06] LABS: TOTAL PROTEIN, SERUM 6.8 g/dL (6.0-8.5)
[2022-05-26 05:06] LABS: IMMUNOGLOBULIN G, QNT 778 mg/dL (586-1602); IMMUNOGLOBULIN M, QNT 52 mg/dL (26-217)
[2022-05-26 07:06] LABS: HEPATITIS B SURFACE AB Non Reactive (.)
[2022-05-26 12:07] LABS: CCP ANTIBODIES IGG/IGA 4 units (0-19)
[2022-05-26 14:09] LABS: ANTICARDIOLIPIN AB, IGG, QN <9 GPL U/mL (0-14); ANTICARDIOLIPIN AB, IGM, QN <9 MPL U/mL (0-12); CARDIOLIPIN AB IGA <9 APL U/mL (0-11)
[2022-05-28 14:07] LABS: A/G RATIO 1.1 (0.7-1.7); ALBUMIN 3.5 g/dL (2.9-4.4); ALPHA-1-GLOBULIN 0.3 g/dL (0.0-0.4); BETA GLOBULIN 1.2 g/dL (0.7-1.3); BETA-2 GLYCOPROTEIN I AB,IGA <9 (0-25); BETA-2 GLYCOPROTEIN I AB,IGG <9 (0-20); BETA-2 GLYCOPROTEIN I AB,IGM <9 (0-32); GAMMA GLOBULIN 0.8 g/dL (0.4-1.8); GLOBULIN, TOTAL 3.3 g/dL (2.2-3.9); M-SPIKE Not Observed g/dL (Not Observed)
[2022-05-28 15:06] LABS: ANTI-DSDNA ANTIBODIES <1 IU/mL (0-9); ANTI-RNP ANTIBODIES 0.5 AI (0.0-0.9); IMMUNOFIXATION RESULT, SERUM Comment: (.); SJOGREN ANTI-SS-A <0.2 AI (0.0-0.9); SJOREN AB, ANTI-SS-B <0.2 AI (0.0-0.9)
[2022-05-29 16:07] LABS: TB1 Ag VALUE 0.01 IU/mL (.)
== END | disposition home or self-care (01) ==
LOC: LAB 09:54
PROVIDERS: ATTEND Internal Medicine Rheumatology
DX: E11.42 Type 2 diabetes mellitus with diabetic polyneuropathy (principal); D68.59 Other primary thrombophilia; M35.3 Polymyalgia rheumatica; M19.072 Primary osteoarthritis, left ankle and foot; M19.071 Primary osteoarthritis, right ankle and foot; M79.89 Other specified soft tissue disorders; M20.41 Other hammer toe(s) (acquired), right foot; M20.11 Hallux valgus (acquired), right foot; M19.042 Primary osteoarthritis, left hand; M19.041 Primary osteoarthritis, right hand

== ENCOUNTER → 2022-08-23 | Outpatient (CLI) | payer MEDICARE | END | disposition home or self-care (01) | LOC: NM 03:57 | PROVIDERS: ATTEND Internal Medicine | DX: R11.2 Nausea with vomiting, unspecified (principal); R10.9 Unspecified abdominal pain ==

== ENCOUNTER → 2022-09-25 | Outpatient (CLI) | payer MEDICARE ==
[2022-09-25 14:21] LABS: BASO % 0.4 % (0.0-1.0); EOS # 0.1 10*3/uL (0.0-0.4); EOS % 1.3 % (1.0-4.0); HEMATOCRIT 39.6 % (37.0-47.0); LYMPH # 1.4 10*3/uL (1.3-4.4); LYMPH % 15.1 % (27.0-41.0); MEAN CELL VOLUME 87.4 fl (81.0-99.0); MEAN CORPUSCULAR HGB 28.3 pg (27.0-31.0); MEAN CORPUSCULAR HGB CONC 32.3 g/dl (33.0-37.0); MEAN PLATELET VOLUME 9.8 fl (9.6-12.3); MONO # 0.5 10*3/uL (0.1-1.0); MONO % 5.5 % (3.0-9.0); NEUT # 7.2 10*3/uL (2.3-7.9); NEUT % 77.1 % (47.0-73.0); PLATELET COUNT AUTOMATED 263 10*3/uL (130-400); RED BLOOD COUNT 4.53 10*6/uL (4.10-5.10); RED CELL DISTRI WIDTH 15.3 % (0-14.5); WHITE BLOOD COUNT 9.3 10*3/uL (4.8-10.8)
[2022-09-25 14:42] LABS: INTERNATIONAL NORM RATIO 2.5 (2.0-3.5)
== END | disposition home or self-care (01) ==
LOC: LAB 14:05
PROVIDERS: ATTEND Internal Medicine
DX: Z79.01 Long term (current) use of anticoagulants (principal)

== ENCOUNTER 2023-01-23 11:22 | Emergency (ER) | payer MEDICARE ==
[~2023-01-23] VITALS: Wt 110.2 kg
[2023-01-23 13:34] LABS: BASO % 0.3 % (0.0-1.0); EOS # 0.3 10*3/uL (0.0-0.4); EOS % 2.8 % (1.0-4.0); HEMATOCRIT 35.8 % (37.0-47.0); LYMPH # 1.1 10*3/uL (1.3-4.4); LYMPH % 8.6 % (27.0-41.0); MEAN CELL VOLUME 92.3 fl (81.0-99.0); MEAN CORPUSCULAR HGB 29.4 pg (27.0-31.0); MEAN CORPUSCULAR HGB CONC 31.8 g/dl (33.0-37.0); MONO # 0.6 10*3/uL (0.1-1.0); NEUT # 10.1 10*3/uL (2.3-7.9); NEUT % 82.3 % (47.0-73.0); PLATELET COUNT AUTOMATED 218 10*3/uL (130-400); RED BLOOD COUNT 3.88 10*6/uL (4.10-5.10); RED CELL DISTRI WIDTH 16.1 % (0-14.5); WHITE BLOOD COUNT 12.3 10*3/uL (4.8-10.8)
[2023-01-23 13:45] LABS: ACT PARTIAL THROMBO TIME 35.3 SECONDS (20.0-32.1)
[2023-01-23 14:01] LABS: POTASSIUM 5.1 mmol/L (3.4-5.1); TOTAL PROTEIN 6.5 gm/dL (6.0-8.0)
[2023-01-23 18:13] VITALS: BP 128/57
== END 2023-01-23 20:09 | disposition short-term general hospital (02) ==
LOC: ED 11:22
PROVIDERS: Emergency Medicine
DX: K92.2 Gastrointestinal hemorrhage, unspecified (principal); J45.909 Unspecified asthma, uncomplicated; Z86.718 Personal history of other venous thrombosis and embolism; F32.A Depression, unspecified; M79.7 Fibromyalgia; E11.9 Type 2 diabetes mellitus without complications; Z88.2 Allergy status to sulfonamides; Z88.5 Allergy status to narcotic agent; Z88.8 Allergy status to other drugs, medicaments and biological substances; Z98.890 Other specified postprocedural states; Z90.89 Acquired absence of other organs; Z98.51 Tubal ligation status

== ENCOUNTER 2023-03-25 21:59 | Emergency (ER) | payer MEDICARE ==
[~2023-03-25] VITALS: Ht 157.4 cm; Wt 111.1 kg
[2023-03-25 22:35] LABS: BASO % 0.2 % (0.0-1.0); HEMATOCRIT 30.9 % (37.0-47.0); LYMPH # 0.5 10*3/uL (1.3-4.4); LYMPH % 5.5 % (27.0-41.0); MEAN CELL VOLUME 83.1 fl (81.0-99.0); MEAN CORPUSCULAR HGB 24.7 pg (27.0-31.0); MEAN CORPUSCULAR HGB CONC 29.8 g/dl (33.0-37.0); MEAN PLATELET VOLUME 10.8 fl (9.6-12.3); MONO # 0.4 10*3/uL (0.1-1.0); MONO % 4.1 % (3.0-9.0); NEUT # 8.1 10*3/uL (2.3-7.9); NEUT % 89.3 % (47.0-73.0); PLATELET COUNT AUTOMATED 188 10*3/uL (130-400); RED BLOOD COUNT 3.72 10*6/uL (4.10-5.10); RED CELL DISTRI WIDTH 19.1 % (0-14.5); WHITE BLOOD COUNT 9.1 10*3/uL (4.8-10.8)
[2023-03-25 22:56] LABS: POTASSIUM 3.8 mmol/L (3.4-5.1); TOTAL PROTEIN 6.6 gm/dL (6.0-8.0)
[2023-03-26 02:11] LABS: BILIRUBIN Negative (Negative); BLOOD 1+ (Negative); CLARITY Clear (Clear); COLOR Yellow (Yellow); GLUCOSE Negative (Negative); KETONE 1+ (Negative); LEUKO ESTERASE Negative (Negative); NITRITE Negative (Negative); PH 7.5 (4.5-8.0)
[2023-03-26] MEDS ORDERED: PHENERGAN25 M3 PO (02:44)
[2023-03-26 03:54] VITALS: BP 153/75
== END 2023-03-26 03:08 | disposition home or self-care (01) ==
LOC: ED 21:59
PROVIDERS: Internal Medicine
DX: B34.9 Viral infection, unspecified (principal); Z20.822 Contact with and (suspected) exposure to COVID-19; E87.1 Hypo-osmolality and hyponatremia; D64.9 Anemia, unspecified; R79.89 Other specified abnormal findings of blood chemistry; J45.909 Unspecified asthma, uncomplicated; I12.9 Hypertensive chronic kidney disease with stage 1 through stage 4 chronic kidney disease, or unspecified chronic kidney disease; E11.22 Type 2 diabetes mellitus with diabetic chronic kidney disease; N18.31 Chronic kidney disease, stage 3a; Z86.718 Personal history of other venous thrombosis and embolism; F32.A Depression, unspecified; M79.7 Fibromyalgia; R11.0 Nausea; Z88.2 Allergy status to sulfonamides; Z88.5 Allergy status to narcotic agent; Z88.8 Allergy status to other drugs, medicaments and biological substances; Z98.890 Other specified postprocedural states; Z90.89 Acquired absence of other organs; Z98.51 Tubal ligation status; Z79.899 Other long term (current) drug therapy

== ENCOUNTER → 2023-04-01 | Emergency (ER) | payer MEDICARE ==
[~2023-04-01] VITALS: Ht 162.5 cm; Wt 113.4 kg
[~2023-04-01] MED LIST changes: +Acetaminophen/Hydrocodone 5 MG/325 MG TABLET PO ONE; +CLARITIN10 MG PO; +Ondansetron Hydrochloride 4 MG TAB SL ONE; +PHENERGAN25 M3 PO; +methylPREDNISolone sod succ 125 MG VIAL IM ONE
[2023-04-01 19:32] VITALS: BP 132/79
[2023-04-01 19:47] LABS: HEMATOCRIT 27.8 % (37.0-47.0); MEAN CELL VOLUME 82.5 fl (81.0-99.0); MEAN CORPUSCULAR HGB 24.6 pg (27.0-31.0); MEAN CORPUSCULAR HGB CONC 29.9 g/dl (33.0-37.0); MEAN PLATELET VOLUME 10.5 fl (9.6-12.3); PLATELET COUNT AUTOMATED 452 10*3/uL (130-400); RED BLOOD COUNT 3.37 10*6/uL (4.10-5.10); RED CELL DISTRI WIDTH 20.5 % (0-14.5); WHITE BLOOD COUNT 27.8 10*3/uL (4.8-10.8)
[2023-04-01 19:57] LABS: MANUAL DIFF REFLEX YES
[2023-04-01 20:09] LABS: POTASSIUM 4.3 mmol/L (3.4-5.1); TOTAL PROTEIN 6.9 gm/dL (6.0-8.0)
[2023-04-01 20:13] LABS: OVALOCYTES FEW; STOMATOCYTE FEW; TOTAL CELLS COUNTED 100 #CELLS
[2023-04-01 20:15] LABS: PLATELET SUFFICIENCY HIGH (NORMAL)
[2023-04-01 20:46] LABS: BILIRUBIN Negative (Negative); BLOOD Negative (Negative); CLARITY Clear (Clear); COLOR Dark Yellow (Yellow); GLUCOSE 1+ (Negative); KETONE Negative (Negative); LEUKO ESTERASE Negative (Negative); NITRITE Negative (Negative); SPECIFIC GRAVITY 1.025 (1.001-1.030)
[2023-04-01 20:55] LABS: BACTERIA 1+; RBC 0-2 rbc/hpf (0-2)
== END ==
LOC: ED 19:29
PROVIDERS: Internal Medicine
DX: M17.11 Unilateral primary osteoarthritis, right knee (principal); G89.29 Other chronic pain; D72.829 Elevated white blood cell count, unspecified; E44.1 Mild protein-calorie malnutrition; Z68.1 Body mass index [BMI] 19.9 or less, adult; D64.9 Anemia, unspecified; M25.561 Pain in right knee; R10.84 Generalized abdominal pain; J45.909 Unspecified asthma, uncomplicated; Z86.718 Personal history of other venous thrombosis and embolism; F32.A Depression, unspecified; M79.7 Fibromyalgia; E11.22 Type 2 diabetes mellitus with diabetic chronic kidney disease; I12.9 Hypertensive chronic kidney disease with stage 1 through stage 4 chronic kidney disease, or unspecified chronic kidney disease; N18.31 Chronic kidney disease, stage 3a; I10 Essential (primary) hypertension; Z88.2 Allergy status to sulfonamides; Z88.5 Allergy status to narcotic agent; Z88.8 Allergy status to other drugs, medicaments and biological substances; Z98.890 Other specified postprocedural states; Z90.89 Acquired absence of other organs; Z98.51 Tubal ligation status

== ENCOUNTER → 2023-06-24 | Outpatient (CLI) | payer MEDICARE ==
[~2023-06-24] MED LIST changes: -Acetaminophen/Hydrocodone 5 MG/325 MG TABLET PO ONE; +CEFTRIAXONE2 G1 IV; +Coumadin3 MG PO; +METFORMIN HYDR500 MG PO; +OXYCODONE-ACET1 EACH PO; -Ondansetron Hydrochloride 4 MG TAB SL ONE; +PEPCID AC10 M2 PO; +PREVACID15 MG PO; +WARFARIN SOD2 MG PO; -methylPREDNISolone sod succ 125 MG VIAL IM ONE
== END | disposition home or self-care (01) ==
LOC: ORTHO
PROVIDERS: ATTEND Orthopaedic Surgery
DX: M17.11 Unilateral primary osteoarthritis, right knee (principal); M06.861 Other specified rheumatoid arthritis, right knee

== ENCOUNTER → 2023-09-23 | Outpatient (CLI) | payer MEDICARE ==
[~2023-09-23] MED LIST changes: +CIPRO500 MG PO; +VIBRAMYCIN HYC100 MG PO
== END | disposition home or self-care (01) ==
LOC: ORTHO 02:07
PROVIDERS: ATTEND Orthopaedic Surgery
DX: M17.11 Unilateral primary osteoarthritis, right knee (principal); M06.861 Other specified rheumatoid arthritis, right knee; M25.762 Osteophyte, left knee

== ENCOUNTER 2023-12-25 09:10 | Inpatient (IN) | payer MEDICARE ==
[~2023-12-25] VITALS: Ht 157.5 cm; Wt 87.1 kg
[2023-12-25 09:22] VITALS: BP 120/36
[2023-12-25] MEDS ORDERED: Meclizine Hydrochloride 25 MG TAB PO ONE (09:40)
[2023-12-25 10:06] LABS: BASO % 0.4 % (0.0-1.0); EOS # 0.4 10*3/uL (0.0-0.4); EOS % 4.1 % (1.0-4.0); HEMATOCRIT 27.9 % (37.0-47.0); MEAN CELL VOLUME 85.6 fl (81.0-99.0); MEAN CORPUSCULAR HGB 26.1 pg (27.0-31.0); MEAN CORPUSCULAR HGB CONC 30.5 g/dl (33.0-37.0); MEAN PLATELET VOLUME 9.4 fl (9.6-12.3); MONO # 0.8 10*3/uL (0.1-1.0); NEUT # 6.9 10*3/uL (2.3-7.9); NEUT % 73.8 % (47.0-73.0); PLATELET COUNT AUTOMATED 346 10*3/uL (130-400); RED BLOOD COUNT 3.26 10*6/uL (4.10-5.10); WHITE BLOOD COUNT 9.4 10*3/uL (4.8-10.8)
[2023-12-25 10:30] LABS: POTASSIUM 3.9 mmol/L (3.4-5.1); TOTAL PROTEIN 6.9 gm/dL (6.0-8.0)
[2023-12-25 10:47] LABS: BILIRUBIN Negative (Negative); BLOOD Negative (Negative); CLARITY Clear (Clear); COLOR Yellow (Yellow); GLUCOSE Negative (Negative); KETONE Negative (Negative); LEUKO ESTERASE 1+ (Negative); NITRITE Negative (Negative); PH 7.5 (4.5-8.0); SPECIFIC GRAVITY 1.015 (1.001-1.030)
[2023-12-25 10:56] LABS: BACTERIA 2+; CALCIUM OXALATE CRYSTALS 2+; WBC 21-30 wbc/hpf (0-5)
[2023-12-25] MEDS ORDERED: LORazepam 0.5 MG TAB PO ONE (11:30)
[2023-12-25] MEDS ORDERED: Ceftriaxone Sodium 1 GM/10 ML SYR IV ONE (13:10)
[2023-12-25] MEDS ORDERED: ACETAMINOPHEN 650 MG SUPP R PRN (14:10)
[2023-12-25] MEDS ORDERED: Magnesium Hydroxide 30 ML UDC PO PRN (14:10)
[2023-12-25] MEDS ORDERED: Ondansetron Hydrochloride 4 MG/2 ML VIAL IV PRN (14:10)
[2023-12-25] MEDS ORDERED: BISACODYL 5 MG TAB PO PRN (14:10)
[2023-12-25] MEDS ORDERED: BISACODYL 10 MG SUPP R PRN (14:10)
[2023-12-25] MEDS ORDERED: ACETAMINOPHEN 325 MG TAB PO PRN (14:10)
[2023-12-25] MEDS ORDERED: TEMAZEPAM 15 MG CAP PO PRN (14:10)
[2023-12-25] MEDS ORDERED: DEXTROSE 10 % IN WATER 250 ML IV PRN (14:15)
[2023-12-25] MEDS ORDERED: INSULIN LISPRO 1 UNIT/0.01 ML SQ SCH (16:30)
[2023-12-25 17:50] VITALS: BP 117/50
[2023-12-25] MEDS ORDERED: WARFARIN SODIUM 2 MG TAB PO SCH (18:10)
[2023-12-25] MEDS ORDERED: SODIUM CHLORIDE 0.9% 500 ML IV ONE (18:10)
[2023-12-25 18:22] VITALS: BP 144/68
[2023-12-25 20:00] VITALS: BP 142/53
[2023-12-25] MEDS ORDERED: Meclizine Hydrochloride 25 MG TAB PO SCH (22:00)
[2023-12-25] MEDS ORDERED: Amitriptyline Hydrochloride 25 MG TAB PO SCH (22:00)
[2023-12-26] VITALS: BP 116/52
[2023-12-26] MEDS ORDERED: Levothyroxine Sodium 175 MCG TAB PO SCH (06:00)
[2023-12-26] MEDS ORDERED: Pantoprazole Sodium 40 MG TAB PO SCH (06:00)
[2023-12-26 06:06] LABS: BASO % 0.4 % (0.0-1.0); EOS # 0.6 10*3/uL (0.0-0.4); EOS % 7.3 % (1.0-4.0); HEMATOCRIT 28.5 % (37.0-47.0); MEAN CELL VOLUME 86.4 fl (81.0-99.0); MEAN CORPUSCULAR HGB 26.1 pg (27.0-31.0); MEAN CORPUSCULAR HGB CONC 30.2 g/dl (33.0-37.0); MEAN PLATELET VOLUME 10.3 fl (9.6-12.3); MONO # 0.7 10*3/uL (0.1-1.0); MONO % 9.5 % (3.0-9.0); NEUT # 5.4 10*3/uL (2.3-7.9); NEUT % 70.6 % (47.0-73.0); PLATELET COUNT AUTOMATED 358 10*3/uL (130-400); RED CELL DISTRI WIDTH 14.9 % (0-14.5); WHITE BLOOD COUNT 7.7 10*3/uL (4.8-10.8)
[2023-12-26 07:41] LABS: FREE T4 1.24 ng/dl (0.89-1.76); POTASSIUM 3.8 mmol/L (3.4-5.1); TOTAL PROTEIN 6.2 gm/dL (6.0-8.0)
[2023-12-26 07:47] LABS: VITAMIN D, 25-HYDROXY 80.9 ng/mL (30-100)
[2023-12-26 08:00] VITALS: BP 151/66
[2023-12-26] MEDS ORDERED: Montelukast Sodium 10 MG TAB PO SCH (10:00)
[2023-12-26] MEDS ORDERED: Enoxaparin Sodium 30 MG/0.3 ML SYR SC SCH (10:00)
[2023-12-26] MEDS ORDERED: amLODIPine besylate 2.5 MG TAB PO SCH (10:00)
[2023-12-26] MEDS ORDERED: Duloxetine Hydrochloride 20 MG CAP PO SCH (10:00)
[2023-12-26] MEDS ORDERED: Duloxetine Hydrochloride 60 MG CAP PO SCH (10:00)
[2023-12-26 12:00] VITALS: BP 146/58
[2023-12-26] MEDS ORDERED: SODIUM CHLORIDE 0.9% 500 ML IV SCH (13:45)
[2023-12-26] MEDS ORDERED: Ceftriaxone Sodium 1 GM,IV 1 EA in SYRINGE INFUSION 10 ML IV SCH (14:00)
[2023-12-26 16:00] VITALS: BP 137/48
[2023-12-26] MEDS ORDERED: HEPARIN SODIUM 250 ML IV SCH (16:55)
[2023-12-26 20:00] VITALS: BP 140/46
[2023-12-27 00:36] VITALS: BP 125/46
[2023-12-27 02:01] LABS: BASO % 0.3 % (0.0-1.0); EOS # 0.6 10*3/uL (0.0-0.4); EOS % 5.7 % (1.0-4.0); HEMATOCRIT 27.2 % (37.0-47.0); MEAN CELL VOLUME 83.7 fl (81.0-99.0); MEAN CORPUSCULAR HGB 26.2 pg (27.0-31.0); MEAN CORPUSCULAR HGB CONC 31.3 g/dl (33.0-37.0); MEAN PLATELET VOLUME 9.4 fl (9.6-12.3); MONO # 0.8 10*3/uL (0.1-1.0); MONO % 8.2 % (3.0-9.0); NEUT # 7.2 10*3/uL (2.3-7.9); NEUT % 71.6 % (47.0-73.0); PLATELET COUNT AUTOMATED 320 10*3/uL (130-400); RED BLOOD COUNT 3.25 10*6/uL (4.10-5.10); RED CELL DISTRI WIDTH 14.7 % (0-14.5); WHITE BLOOD COUNT 10.1 10*3/uL (4.8-10.8)
[2023-12-27] MEDS ORDERED: HEEL PROTECTOR DEVICE ONE (02:03)
[2023-12-27] MEDS ORDERED: CHAIR CUSHION DEVICE ONE (02:03)
[2023-12-27 02:21] LABS: POTASSIUM 3.7 mmol/L (3.4-5.1); TOTAL PROTEIN 6.3 gm/dL (6.0-8.0)
[2023-12-27 08:00] VITALS: BP 153/61
[2023-12-27] MEDS ORDERED: amLODIPine besylate 10 MG TAB PO SCH (10:00)
[2023-12-27] MEDS ORDERED: Technetium Tc 99M MacroAg Albu 1 KIT KIT IV SCH ×2 (10:20→10:35)
[2023-12-27] MEDS ORDERED: Technetium Tc 99M Pentetate 1 KIT KIT IV SCH (10:35)
[2023-12-27 12:00] VITALS: BP 151/40
[2023-12-27 16:00] VITALS: BP 126/56
[2023-12-27] MEDS ORDERED: Enoxaparin Sodium 100 MG/ML SYR SC SCH (16:30)
[2023-12-27 20:00] VITALS: BP 128/59
[2023-12-28] VITALS: BP 131/53
[2023-12-28 05:56] LABS: POTASSIUM 3.6 mmol/L (3.4-5.1)
[2023-12-28] MEDS ORDERED: Enoxaparin Sodium 100 MG/ML SYR SC SCH (06:00)
[2023-12-28 06:22] LABS: BASO % 0.3 % (0.0-1.0); EOS # 0.6 10*3/uL (0.0-0.4); HEMATOCRIT 25.5 % (37.0-47.0); MEAN CELL VOLUME 82.5 fl (81.0-99.0); MEAN CORPUSCULAR HGB 26.2 pg (27.0-31.0); MEAN CORPUSCULAR HGB CONC 31.8 g/dl (33.0-37.0); MEAN PLATELET VOLUME 10.2 fl (9.6-12.3); MONO # 0.9 10*3/uL (0.1-1.0); MONO % 9.1 % (3.0-9.0); NEUT % 71.2 % (47.0-73.0); PLATELET COUNT AUTOMATED 340 10*3/uL (130-400); RED BLOOD COUNT 3.09 10*6/uL (4.10-5.10); RED CELL DISTRI WIDTH 14.9 % (0-14.5); WHITE BLOOD COUNT 9.8 10*3/uL (4.8-10.8)
[2023-12-28 08:00] VITALS: BP 140/58
[2023-12-28] MEDS ORDERED: NA FERRIC GLUC CMPL/SUCROSE 62.5 MG/5 ML VIAL IV SCH (10:00)
[2023-12-28 12:00] VITALS: BP 129/37; BP 148/64
[2023-12-28] MEDS ORDERED: Lidocaine Hydrochloride 15 ML UDC PO STA (12:57)
[2023-12-28] MEDS ORDERED: Dicyclomine Hydrochloride 20 MG/10 ML OSYR PO STA (12:57)
[2023-12-28] MEDS ORDERED: MG-AL HYDROXIDE/SIMETICONE 30 ML UDC PO STA (12:57)
[2023-12-28 16:00] VITALS: BP 152/62
[2023-12-28 20:00] VITALS: BP 124/46
[2023-12-28] MEDS ORDERED: Duloxetine Hydrochloride 30 MG CAP PO SCH (22:00)
[2023-12-29 04:00] VITALS: BP 128/52
[2023-12-29 06:16] LABS: POTASSIUM 3.7 mmol/L (3.4-5.1)
[2023-12-29 06:22] LABS: BASO % 0.3 % (0.0-1.0); EOS # 0.5 10*3/uL (0.0-0.4); EOS % 5.2 % (1.0-4.0); MEAN CELL VOLUME 82.5 fl (81.0-99.0); MEAN CORPUSCULAR HGB CONC 32.7 g/dl (33.0-37.0); MEAN PLATELET VOLUME 9.9 fl (9.6-12.3); MONO # 0.9 10*3/uL (0.1-1.0); MONO % 9.8 % (3.0-9.0); NEUT # 6.4 10*3/uL (2.3-7.9); NEUT % 69.3 % (47.0-73.0); PLATELET COUNT AUTOMATED 316 10*3/uL (130-400); RED BLOOD COUNT 3.15 10*6/uL (4.10-5.10); RED CELL DISTRI WIDTH 14.9 % (0-14.5); WHITE BLOOD COUNT 9.3 10*3/uL (4.8-10.8)
[2023-12-29 08:00] VITALS: BP 124/47; BP 143/75
[2023-12-29] MEDS ORDERED: NYSTATIN 15 GM BOT T SCH (10:00)
[2023-12-29 12:00] VITALS: BP 129/45
[2023-12-29 16:00] VITALS: BP 122/56
[2023-12-29 20:00] VITALS: BP 128/48
[2023-12-30] VITALS: BP 100/46
[2023-12-30] MEDS ORDERED: Enoxaparin Sodium 100 MG/ML SYR SC SCH (06:00)
[2023-12-30 06:20] LABS: BASO % 0.3 % (0.0-1.0); EOS # 0.6 10*3/uL (0.0-0.4); EOS % 5.9 % (1.0-4.0); HEMATOCRIT 25.7 % (37.0-47.0); MEAN CELL VOLUME 82.6 fl (81.0-99.0); MEAN CORPUSCULAR HGB 26.4 pg (27.0-31.0); MEAN CORPUSCULAR HGB CONC 31.9 g/dl (33.0-37.0); MEAN PLATELET VOLUME 10.4 fl (9.6-12.3); MONO # 0.9 10*3/uL (0.1-1.0); NEUT # 6.4 10*3/uL (2.3-7.9); PLATELET COUNT AUTOMATED 355 10*3/uL (130-400); RED BLOOD COUNT 3.11 10*6/uL (4.10-5.10); RED CELL DISTRI WIDTH 15.1 % (0-14.5); WHITE BLOOD COUNT 9.4 10*3/uL (4.8-10.8)
[2023-12-30 08:00] VITALS: BP 125/63
[2023-12-30 12:00] VITALS: BP 138/57
[2023-12-30 16:00] VITALS: BP 119/82
[2023-12-30 20:00] VITALS: BP 130/60
[2023-12-30 21:31] LABS: BF LYMPHOCYTES 7 %; BF MONOCYTES 3 %; BF NEUTROPHILS 86 %
[2023-12-31] VITALS: BP 123/52
[2023-12-31 06:31] LABS: BASO % 0.1 % (0.0-1.0); EOS % 0.1 % (1.0-4.0); HEMATOCRIT 25.7 % (37.0-47.0); MEAN CELL VOLUME 84.8 fl (81.0-99.0); MEAN CORPUSCULAR HGB 26.1 pg (27.0-31.0); MEAN CORPUSCULAR HGB CONC 30.7 g/dl (33.0-37.0); MONO # 0.3 10*3/uL (0.1-1.0); MONO % 3.1 % (3.0-9.0); NEUT # 7.5 10*3/uL (2.3-7.9); NEUT % 89.3 % (47.0-73.0); PLATELET COUNT AUTOMATED 348 10*3/uL (130-400); RED BLOOD COUNT 3.03 10*6/uL (4.10-5.10); RED CELL DISTRI WIDTH 15.1 % (0-14.5); WHITE BLOOD COUNT 8.4 10*3/uL (4.8-10.8)
[2023-12-31] MEDS ORDERED: BISACODYL 5 MG TAB PO ONE (07:45)
[2023-12-31 08:00] VITALS: BP 128/70
[2023-12-31] MEDS ORDERED: TRAMADOL HCL50 MG PO (11:11)
[2023-12-31] MEDS ORDERED: AMLODIPINE BESY10 MG PO (11:11)
[2023-12-31] MEDS ORDERED: ENOXAPARIN100 MG/1 M SC (11:11)
[2023-12-31] MEDS ORDERED: MECLIZINE HCL25 M2 PO (11:12)
[2023-12-31] MEDS ORDERED: NYAMYC15 GM T (11:12)
[2023-12-31] MEDS ORDERED: DULOXETINE HCL30 MG PO (11:12)
[2023-12-31] MEDS ORDERED: DULOXETINE HCL60 MG PO (11:12)
[2023-12-31] MEDS ORDERED: Enoxaparin Sodium 100 MG/ML SYR SC SCH (18:00)
== END 2023-12-31 12:29 | DRG 300 ==
LOC: ED 09:10 → 4E 13:53 → EDHOLD 13:53 → 4E 14:11 → EDHOLD 14:14 → 4E 16:03
PROVIDERS: Emergency Medicine; Internal Medicine; Radiology Diagnostic Radiology; Student in an Organized Health Care Education/Training Program; ADMIT Internal Medicine; ATTEND Internal Medicine
PROC: 0R9J3ZZ Drainage of Right Shoulder Joint, Percutaneous Approach (ICD-10-PCS; principal; 2023-12-30)
DX: I82.441 Acute embolism and thrombosis of right tibial vein (principal); D68.32 Hemorrhagic disorder due to extrinsic circulating anticoagulants; D68.9 Coagulation defect, unspecified; N30.00 Acute cystitis without hematuria; I82.451 Acute embolism and thrombosis of right peroneal vein; M35.3 Polymyalgia rheumatica; E66.01 Morbid (severe) obesity due to excess calories; N18.31 Chronic kidney disease, stage 3a; K58.9 Irritable bowel syndrome, unspecified; S46.219A Strain of muscle, fascia and tendon of other parts of biceps, unspecified arm, initial encounter; G90.9 Disorder of the autonomic nervous system, unspecified; E03.9 Hypothyroidism, unspecified; E11.65 Type 2 diabetes mellitus with hyperglycemia; K21.9 Gastro-esophageal reflux disease without esophagitis; E55.9 Vitamin D deficiency, unspecified; M67.911 Unspecified disorder of synovium and tendon, right shoulder; R74.8 Abnormal levels of other serum enzymes; M75.50 Bursitis of unspecified shoulder; I48.91 Unspecified atrial fibrillation; M14.60 Charcot's joint, unspecified site; M06.9 Rheumatoid arthritis, unspecified; T45.515A Adverse effect of anticoagulants, initial encounter; M12.811 Other specific arthropathies, not elsewhere classified, right shoulder; M12.812 Other specific arthropathies, not elsewhere classified, left shoulder; I12.9 Hypertensive chronic kidney disease with stage 1 through stage 4 chronic kidney disease, or unspecified chronic kidney disease; E11.22 Type 2 diabetes mellitus with diabetic chronic kidney disease; F43.21 Adjustment disorder with depressed mood; Z68.35 Body mass index [BMI] 35.0-35.9, adult; D50.9 Iron deficiency anemia, unspecified; Z90.49 Acquired absence of other specified parts of digestive tract; X58.XXXA Exposure to other specified factors, initial encounter; Y93.89 Activity, other specified; Y92.89 Other specified places as the place of occurrence of the external cause; Y99.8 Other external cause status; Z83.6 Family history of other diseases of the respiratory system; Z88.8 Allergy status to other drugs, medicaments and biological substances

== ENCOUNTER → 2025-02-17 | Outpatient (CLI) | payer MEDICARE ==
[~2025-02-17] MED LIST changes: +AMLODIPINE BESY10 MG PO; +DULOXETINE HCL30 MG PO; +DULOXETINE HCL60 MG PO; +ENOXAPARIN100 MG/1 M SC; +MECLIZINE HCL25 M2 PO; +NYAMYC15 GM T
== END | disposition home or self-care (01) ==
LOC: ORTHO 02:54
PROVIDERS: ATTEND Orthopaedic Surgery
DX: M19.011 Primary osteoarthritis, right shoulder (principal); M25.811 Other specified joint disorders, right shoulder